=== PATIENT | male | born 1960 | race Hispanic/Latino ===

== ENCOUNTER 2023-04-10 11:08 | Day surgery (SDC) | payer OTHER ==
[2023-04-08 12:56] LABS: BASOPHILS # (AUTO) 0.04 K/uL (0.00-0.20); BASOPHILS % (AUTO) 0.9 % (0.0-5.0); EOSINOPHILS # (AUTO) 0.17 K/uL (0.00-0.70); EOSINOPHILS % (AUTO) 3.7 % (0.0-8.0); HEMATOCRIT 41.7 % (42-54); IMMATURE GRANULOCYTE ABSOLUTE 0.03 K/uL (0-1); LYMPHOCYTES # (AUTO) 1.4 K/uL (1.0-4.8); LYMPHOCYTES % (AUTO) 29.2 % (21.0-51.0); MEAN CORPUSCULAR HEMOGLOBIN 31.9 pg (27.0-33.0); MEAN CORPUSCULAR HGB CONC 34.5 g/dL (32.0-36.0); MEAN CORPUSCULAR VOLUME 92.3 fL (79-99); MONOCYTES # (AUTO) 0.4 K/uL (0.1-1.0); MONOCYTES % (AUTO) 8.4 % (3.0-13.0); NEUTROPHILS # (AUTO) 2.7 K/uL (1.8-7.7); NEUTROPHILS % (AUTO) 57.2 % (40.0-77.0); PLATELET COUNT (AUTO) 198 K/uL (130-400); RED BLOOD CELL COUNT(AUTO) 4.52 MIL/uL (4.50-6.20); RED CELL DISTRIBUTION WIDTH 13.1 % (11.0-15.5); WHITE BLOOD COUNT (AUTO) 4.7 K/uL (4.8-10.8)
[2023-04-08 12:59] VITALS: BP 182/77; PULSE 74; RESP 18
[2023-04-08 13:13] LABS: CREATININE 0.8 mg/dL (0.5-1.5); POTASSIUM 4.8 mmol/L (3.5-5.1)
[2023-04-10] VITALS (18 sets, daily range): BP systolic 119–149; BP diastolic 70–85; PULSE 63–81; RESP 12–16
[~2023-04-10] VITALS: Ht 180.3 cm; Wt 92.4 kg
[~2023-04-10 11:08] MED LIST: TAMS-1 PO
[2023-04-10] MEDS ORDERED: LACTATED RINGERS 1000ML 1,000 ML IV ONE (11:48)
[2023-04-10] MEDS ORDERED: LEVOFLOXACIN 500 MG/D5W 100 ML 100 ML ONE (11:48)
[2023-04-10] MEDS ORDERED: CEPH500B PO (11:53)
[2023-04-10 12:31] LABS: CREATININE 0.8 mg/dL (0.5-1.5); POTASSIUM 4.3 mmol/L (3.5-5.1)
[2023-04-10] MEDS ORDERED: LIDOCAINE PF 100MG/5ML (2%) SYRINGE 5ML ONE (13:00)
[2023-04-10] MEDS ORDERED: PROPOFOL 10 MG/ML 20ML VIAL IV ONE ×2 (13:00→13:43)
[2023-04-10] MEDS ORDERED: MIDAZOLAM HCL 1 MG/ML 2ML VIAL ONE (13:20)
[2023-04-10] MEDS ORDERED: FENTANYL CITRATE PF 50 MCG/1 ML 2ML VIAL ONE (13:20)
[2023-04-10] MEDS ORDERED: ROCURONIUM 10MG/1ML SYR 10 MG/ML ML ONE (13:21)
[2023-04-10] MEDS ORDERED: ONDANSETRON 4MG INJ ONE (14:01)
[2023-04-10] MEDS ORDERED: PHENAZOPYRIDINE HCL 200 MG TABLET ONE (15:55)
== END 2023-04-10 16:25 | disposition home or self-care (01) ==
LOC: DAH 11:08
PROVIDERS: ATTEND Urology
DX: N40.1 Benign prostatic hyperplasia with lower urinary tract symptoms (principal); N32.89 Other specified disorders of bladder; R39.14 Feeling of incomplete bladder emptying; N41.1 Chronic prostatitis; I10 Essential (primary) hypertension; E78.5 Hyperlipidemia, unspecified; Z79.01 Long term (current) use of anticoagulants; Z79.899 Other long term (current) drug therapy
CPT/HCPCS: 80048 ×2; 85025; 36415 ×2; 93005; 52648; 88305; A6260; A4663; J7120 ×2; A4354; J3010; J1956; J2001; J2250; J2704 ×2; J2405; A4358; A4215; A4223; A4222; A4221; A4510; A4600; J3490

== ENCOUNTER 2023-05-27 06:11 | Day surgery (SDC) | payer OTHER ==
[2023-05-25 16:53] VITALS: BP 153/80; PULSE 71; RESP 16
[2023-05-27] VITALS (10 sets, daily range): BP systolic 81–121; BP diastolic 48–72; PULSE 56–68; RESP 12–20
[~2023-05-27] VITALS: Ht 180.3 cm; Wt 91.1 kg
[2023-05-27] MEDS ORDERED: PROPOFOL 10 MG/ML 20ML VIAL IV ONE ×2 (08:30→08:58)
== END 2023-05-27 10:33 | disposition home or self-care (01) ==
LOC: ENDO 06:11 → DAH 06:11 → ENDO 10:33
PROVIDERS: ATTEND Internal Medicine Gastroenterology
DX: R93.3 Abnormal findings on diagnostic imaging of other parts of digestive tract (principal); K86.89 Other specified diseases of pancreas; C90.00 Multiple myeloma not having achieved remission; N40.0 Benign prostatic hyperplasia without lower urinary tract symptoms; E78.5 Hyperlipidemia, unspecified; Z80.0 Family history of malignant neoplasm of digestive organs; Z82.49 Family history of ischemic heart disease and other diseases of the circulatory system; Z72.89 Other problems related to lifestyle; Z79.899 Other long term (current) drug therapy; Z98.890 Other specified postprocedural states
CPT/HCPCS: 43237; J2704 ×2; A4620; A4215 ×2; A4223; A7002; A4222; A4221; A4663; A4216; J7030; A4606; 44360; J3490